=== PATIENT | female | born 1975 | race Two or more races ===

== ENCOUNTER 2022-03-13 20:01 | Emergency (ER) | payer OTHER ==
[~2022-03-13] VITALS: Ht 160 cm; Wt 59.0 kg
[2022-03-13 20:09] VITALS: BP 105/77
--- NOTE | 2022-03-13 20:32 | NUR ---
Patient eloped from facility. ER MD notified.
== END 2022-03-13 20:48 | disposition left against medical advice (07) ==
LOC: ER 20:03
DX: M54.9 Dorsalgia, unspecified (principal)